=== PATIENT | female | born 1960 | race Asian ===

== ENCOUNTER 2022-06-13 03:52 | Day surgery (SDC) | payer OTHER ==
[2022-05-25 19:09] VITALS: BMI 30.2
[2022-06-13] MEDS ORDERED: ACETAMINOPHEN 1000 MG/100 ML BAG IVPB PRN (07:34)
[2022-06-13] MEDS ORDERED: oxyCODONE HCL 5 MG TABLET PO PRN ×3 (07:34→08:58)
[2022-06-13] MEDS ORDERED: ONDANSETRON 4 MG/2 ML VIAL IVPUSH PRN ×2 (07:34→08:58)
[2022-06-13] MEDS ORDERED: PROMETHAZINE HCL 25 MG/1 ML VIAL IVPB PRN (07:34)
[2022-06-13] MEDS ORDERED: LACTATED RINGERS SOLUTION 1,000 ML IV SCH (07:45)
[2022-06-13] MEDS ORDERED: LIDOCAINE HCL/PF 2% SDV 5ML VIAL ONE (08:36)
[2022-06-13] MEDS ORDERED: IBUPROFEN 800 MG/8 ML IJ IVPB PRN (08:58)
[2022-06-13] MEDS ORDERED: IBUPROFEN 600 MG TABLET (FP) PO PRN (08:58)
[2022-06-13] MEDS ORDERED: DEXAMETHASONE SOD PHOSPHATE 4 MG/1 ML VIAL ONE (08:59)
[2022-06-13] MEDS ORDERED: KETOROLAC TROMETHAMINE 30 MG/1 ML VIAL ONE (08:59)
[2022-06-13] MEDS ORDERED: PROPOFOL 20 ML ONE (08:59)
[2022-06-13] MEDS ORDERED: ELECTROLYTE-148 SOLN 1,000 ML IV SCH (09:00)
[2022-06-13 12:12] VITALS: RESP 18
[2022-06-13 15:40] VITALS: BP 145/81; PULSE 86; TEMP 98.2
== END 2022-06-13 13:17 | disposition home or self-care (01) ==
LOC: JASU-SURG 03:52
PROVIDERS: ATTEND Obstetrics & Gynecology
PROC: 0UB98ZZ Excision of Uterus, Via Natural or Artificial Opening Endoscopic (ICD-10-PCS; 2022-06-13)
PROC: 0UBC8ZZ Excision of Cervix, Via Natural or Artificial Opening Endoscopic (ICD-10-PCS; principal; 2022-06-13 08:30)
DX: N84.1 Polyp of cervix uteri (principal); N84.0 Polyp of corpus uteri
CPT/HCPCS: 82962; 88305-TC; 88341-TC; 88342-TC; 94760